=== PATIENT | female | born 1995 | race Caucasian/White ===

== ENCOUNTER 2020-06-08 15:51 | Inpatient (IN) | payer BC, MEDICAID ==
[2020-06-08] MEDS ORDERED: Nalbuphine 10 MG/1 ML Vial IVPUSH PRN (18:10)
[2020-06-08] MEDS ORDERED: Sodium Chloride 0.9% 10 ML Syringe FLUSH PRN (18:10)
[2020-06-08] MEDS ORDERED: Misoprostol 25 MCG (1/4 of 100 MCG) Tab VAG SCH ×2 (18:15→22:30)
--- NOTE | 2020-06-08 18:45 | PCM.LDHP ---
<Mei August I - Last Filed: 06/08/20 18:36> L&D History of Present Illness - General Date of Service: 06/08/20 Admit Problem/Dx: Patient Status Order with Admit Dx/Problem 06/08/20 18:15 Admission Status [Patient Status] [ADT] Routine Patient Status [ADT] Routine Admission Diagnosis/Problem Admission Diagnosis/Problem Source of Information: Patient History Limitations: Reports: No Limitations - History of Present Illness Introduction:: Hoda Lozano ia 24-year-old with gestational age 38 weeks and 4 days and MOISE of 06/18/2020 that presents to labor and delivery for a medically i ndicated induction due to hypertension (preeclampsia). Patient's blood pressure upon arrival was 157/105. She reports that she has been experiencing mild swelling in her ankles and feet for the duration of her . She denies headache, changes in vision or right upper quadrant pain. She denies shortness of breath, heart palpitations, or chest pain. Labwork 11/21/2019: blood type O positive, HCT 44/4%, HGB 15.7, platelets 287, RPR, HIV, HBsAg, chlamydia, gonorrhea all negative 05/19/2020: GBS negative - Related Data Allergies/Adverse Reactions: Allergies Allergy/AdvReac Type Severity Reaction Status Date / Time No Known Allergies Allergy Verified 06/08/20 16:42 Home Medications: Home Meds Vits #93/Iron Fum/FA [ Formula Tablet] 1 each PO DAILY 06/08/20 [History] H&P Review of Systems - Review of Systems: Review Of Systems: See Below General: Reports: No Symptoms HEENT: Reports: No Symptoms Pulmonary: Reports: No Symptoms Cardiovascular: Reports: Edema (mild pedal edema ) Gastrointestinal: Reports: No Symptoms Genitourinary: Reports: No Symptoms L&D Exam - Exam Exam: See Below - Vital Signs Vital Signs: Last Vital Signs Temp 96.5 F L 06/08/20 16:00 Pulse 100 06/08/20 16:00 Resp 18 06/08/20 16:00 BP 149/99 H 06/08/20 16:00 Pulse Ox 97 06/08/20 16:00 Weight: 251 lb 14.4 oz - Exam General: Alert, Oriented Lungs: Clear to Auscultation, Normal Respiratory Effort Cardiovascular: Regular Rate, Regular Rhythm Extremities: Pedal Edema (1+ pitting pedal edema) - Patient Data Lab Results Last 24 hrs: Laboratory Results - last 24 hr 06/08/20 06/08/20 06/08/20 Range/Units 17:20 17:20 17:20 WBC 11.37 H (3.98-10.04) K/mm3 RBC 4.34 (3.98-5.22) M/mm3 Hgb 14.0 (11.2-15.7) gm/dl Hct 40.9 (34.1-44.9) % MCV 94.2 (79.4-94.8) fl MCH 32.3 H (25.6-32.2) pg MCHC 34.2 (32.2-35.5) g/dl RDW Std Deviation 43.5 (36.4-46.3) fL Plt Count 255 (182-369) K/mm3 MPV 12.1 (9.4-12.3) fl Neut % (Auto) 70.6 (34.0-71.1) % Lymph % (Auto) 16.6 L (19.3-51.7) % [place] % (Auto) 9.1 (4.7-12.5) % Eos % (Auto) 1.8 (0.7-5.8) Baso % (Auto) 0.4 (0.1-1.2) % Neut # (Auto) 8.02 H (1.56-6.13) K/mm3 Lymph # (Auto) 1.89 (1.18-3.74) K/mm3 [place] # (Auto) 1.03 H (0.24-0.36) K/mm3 Eos # (Auto) 0.21 (0.04-0.36) K/mm3 Baso # (Auto) 0.05 (0.01-0.08) K/mm3 Manual Slide Review Normal smear BUN 15 (7-18) mg/dL Creatinine 0.8 (0.55-1.02) mg/dL Est Cr Clr Drug Dosing 84.28 mL/min Estimated GFR (MDRD) > 60 (>60) mL/min Uric Acid 6.7 H (2.6-6.0) mg/dL AST 19 (15-37) U/L ALT 18 (14-59) U/L Lactate Dehydrogenase 375 H (81-234) U/L Urine Color Yellow (Yellow) Urine Appearance Clear (Clear) Urine pH 6.0 (5.0-8.0) Ur Specific [place] 1.025 (1.005-1.030) Urine Protein 2+ H (Negative) Urine Glucose (UA) Negative (Negative) Urine Ketones Negative (Negative) Urine Occult Blood Trace-intact H (Negative) Urine Nitrite Negative (Negative) Urine Bilirubin Negative (Negative) Urine Urobilinogen 0.2 (0.2-1.0) Ur Leukocyte Esterase Negative (Negative) Urine RBC 0-5 (0-5) /hpf Urine WBC 0-5 (0-5) /hpf Ur Squamous Epith Cells 5-10 H (0-5) /hpf Amorphous Sediment Moderate H (NOT SEEN) /hpf Urine Bacteria Few (FEW) /hpf Urine Mucus Many H (FEW) /hpf Ur Random Creatinine (30.0-125.0) mg/dL U Random Total Protein (0.0-11.8) mg/dL Protein/Creatinin Ratio (0-149) mg/g 06/08/20 Range/Units 17:20 WBC (3.98-10.04) K/mm3 RBC (3.98-5.22) M/mm3 Hgb (11.2-15.7) gm/dl Hct (34.1-44.9) % MCV (79.4-94.8) fl MCH (25.6-32.2) pg MCHC (32.2-35.5) g/dl RDW Std Deviation (36.4-46.3) fL Plt Count (182-369) K/mm3 MPV (9.4-12.3) fl Neut % (Auto) (34.0-71.1) % Lymph % (Auto) (19.3-51.7) % [place] % (Auto) (4.7-12.5) % Eos % (Auto) (0.7-5.8) Baso % (Auto) (0.1-1.2) % Neut # (Auto) (1.56-6.13) K/mm3 Lymph # (Auto) (1.18-3.74) K/mm3 [place] # (Auto) (0.24-0.36) K/mm3 Eos # (Auto) (0.04-0.36) K/mm3 Baso # (Auto) (0.01-0.08) K/mm3 Manual Slide Review BUN (7-18) mg/dL Creatinine (0.55-1.02) mg/dL Est Cr Clr Drug Dosing mL/min Estimated GFR (MDRD) (>60) mL/min Uric Acid (2.6-6.0) mg/dL AST (15-37) U/L ALT (14-59) U/L Lactate Dehydrogenase (81-234) U/L Urine Color (Yellow) Urine Appearance (Clear) Urine pH (5.0-8.0) Ur Specific [place] (1.005-1.030) Urine Protein (Negative) Urine Glucose (UA) (Negative) Urine Ketones (Negative) Urine Occult Blood (Negative) Urine Nitrite (Negative) Urine Bilirubin (Negative) Urine Urobilinogen (0.2-1.0) Ur Leukocyte Esterase (Negative) Urine RBC (0-5) /hpf Urine WBC (0-5) /hpf Ur Squamous Epith Cells (0-5) /hpf Amorphous Sediment (NOT SEEN) /hpf Urine Bacteria (FEW) /hpf Urine Mucus (FEW) /hpf Ur Random Creatinine 178.0 H (30.0-125.0) mg/dL U Random Total Protein 55.6 H (0.0-11.8) mg/dL Protein/Creatinin Ratio 312.4 H (0-149) mg/g Result Diagrams: 06/08/20 17:20 06/08/20 17:20 Orders Last 24hrs: Active Orders 24 hr Category Date Time Status Admission Status [Patient Status] [ADT] Routine ADT 06/08/20 18:15 Active Patient Status [ADT] Routine ADT 06/08/20 18:15 Active Activity as Tolerated [RC] PFP Care 06/08/20 18:10 Active Communication Order [RC] ASDIRECTED Care 06/08/20 18:10 Active Heart Tones [RC] ASDIRECTED Care 06/08/20 18:11 Active Notify Provider [RC] PFP Care 06/08/20 18:10 Active Notify Provider [RC] PRN Care 06/08/20 18:10 Active Peripheral IV Care [RC] . DIRECTED Care 06/08/20 18:11 Active Vital Signs [RC] PER UNIT ROUTINE Care 06/08/20 16:00 Active Vital Signs [RC] PER UNIT ROUTINE Care 06/08/20 18:10 Active Regular Diet [DIET] Diet 06/08/20 Dinner Active CORONAVIRUS COVID-19 VAMSHI [MOLEC] Stat Lab 06/08/20 17:21 Received RAPID PLASMA REAGIN,RPR [CHEM] Routine Lab 06/08/20 18:10 Ordered TYPE AND SCREEN [BBK] Stat Lab 06/08/20 17:20 Received Lactated Ringers [Ringers, Lactated] 1,000 ml Med 06/08/20 18:15 Active IV ASDIRECTED Nalbuphine [Nubain] Med 06/08/20 18:10 Active 10 mg IVPUSH Q2H PRN Sodium Chloride 0.9% [Saline Flush] Med 06/08/20 18:10 Active 10 ml FLUSH ASDIRECTED PRN miSOPROStoL [Cytotec] Med 06/08/20 18:15 Active 50 mcg VAG ONETIME Electronic Heart Tones Ext w TOCO [WOMSER] Oth 06/08/20 18:10 Ordered Routine Electronic Heart Tones Internal [WOMSER] Per Unit Oth 06/08/20 18:10 Ordered Routine PIH Panel [OM.PC] Stat Oth 06/08/20 16:42 Ordered Peripheral IV Insertion Adult [OM.PC] Routine Oth 06/08/20 18:10 Ordered Resuscitation Status Routine Resus Stat 06/08/20 16:00 Ordered Medication Orders Lactated Ringer's (Ringers, Lactated) 1,000 mls @ 100 mls/hr IV ASDIRECTED ARLENE Misoprostol (Cytotec) 50 mcg VAG ONETIME ARLENE Last Admin: 06/08/20 18:28 Dose: 50 mcg Documented by: JORDI Nalbuphine HCl (Nubain) 10 mg IVPUSH Q2H PRN PRN Reason: Pain Sodium Chloride (Saline Flush) 10 ml FLUSH ASDIRECTED PRN PRN Reason: Keep Vein Open Assessment/Plan Comment:: 50mcg Cytotec administered vaginally at 1825. <Josué Parmar - Last Filed: 06/08/20 23:37> L&D History of Present Illness - General Admit Problem/Dx: Patient Status Order with Admit Dx/Problem 06/08/20 18:15 Admission Status [Patient Status] [ADT] Routine Patient Status [ADT] Routine Admission Diagnosis/Problem Admission Diagnosis/Problem - History of Present Illness Introduction:: H/H 44.4%/15.7 Patient seen, examined by me and discussed with student L&D Exam - Vital Signs Vital Signs: Last Vital Signs Temp 96.5 F L 06/08/20 16:00 Pulse 94 06/08/20 19:57 Resp 18 06/08/20 16:00 BP 161/103 H 06/08/20 19:57 Pulse Ox 97 06/08/20 16:00 - OB Specific Fundal Height In cm: 37 Movement: Active Heart Tones: Present Heart Tones per Min: 140 Heart Rate (FHR) Variability: Moderate (6-25 bmp) Presentation: Vertex - [place] Score Milan Score Cervix Position: Posterior [place] Score Consistency: Soft [place] Score Effacement: 0-30% Milan Score Dilation: 1-2 cm Milan Score 's Station: -2 [place] Score Total: 4 - Exam Extremities: Normal Inspection, Non-Tender, Normal Capillary Refill Skin: Warm, Dry, Intact DTR: 0: Patella (L), Patella (R) Psychiatric: Alert, Normal Affect, Normal Mood - Patient Data Lab Results Last 24 hrs: Laboratory Results - last 24 hr 06/08/20 06/08/20 06/08/20 Range/Units 17:20 17:20 17:20 WBC 11.37 H (3.98-10.04) K/mm3 RBC 4.34 (3.98-5.22) M/mm3 Hgb 14.0 (11.2-15.7) gm/dl Hct 40.9 (34.1-44.9) % MCV 94.2 (79.4-94.8) fl MCH 32.3 H (25.6-32.2) pg MCHC 34.2 (32.2-35.5) g/dl RDW Std Deviation 43.5 (36.4-46.3) fL Plt Count 255 (182-369) K/mm3 MPV 12.1 (9.4-12.3) fl Neut % (Auto) 70.6 (34.0-71.1) % Lymph % (Auto) 16.6 L (19.3-51.7) % [place] % (Auto) 9.1 (4.7-12.5) % Eos % (Auto) 1.8 (0.7-5.8) Baso % (Auto) 0.4 (0.1-1.2) % Neut # (Auto) 8.02 H (1.56-6.13) K/mm3 Lymph # (Auto) 1.89 (1.18-3.74) K/mm3 [place] # (Auto) 1.03 H (0.24-0.36) K/mm3 Eos # (Auto) 0.21 (0.04-0.36) K/mm3 Baso # (Auto) 0.05 (0.01-0.08) K/mm3 Manual Slide Review Normal smear BUN 15 (7-18) mg/dL Creatinine 0.8 (0.55-1.02) mg/dL Est Cr Clr Drug Dosing 84.28 mL/min Estimated GFR (MDRD) > 60 (>60) mL/min Uric Acid 6.7 H (2.6-6.0) mg/dL AST 19 (15-37) U/L ALT 18 (14-59) U/L Lactate Dehydrogenase 375 H (81-234) U/L Urine Color Yellow (Yellow) Urine Appearance Clear (Clear) Urine pH 6.0 (5.0-8.0) Ur Specific [place] 1.025 (1.005-1.030) Urine Protein 2+ H (Negative) Urine Glucose (UA) Negative (Negative) Urine Ketones Negative (Negative) Urine Occult Blood Trace-intact H (Negative) Urine Nitrite Negative (Negative) Urine Bilirubin Negative (Negative) Urine Urobilinogen 0.2 (0.2-1.0) Ur Leukocyte Esterase Negative (Negative) Urine RBC 0-5 (0-5) /hpf Urine WBC 0-5 (0-5) /hpf Ur Squamous Epith Cells 5-10 H (0-5) /hpf Amorphous Sediment Moderate H (NOT SEEN) /hpf Urine Bacteria Few (FEW) /hpf Urine Mucus Many H (FEW) /hpf Ur Random Creatinine (30.0-125.0) mg/dL U Random Total Protein (0.0-11.8) mg/dL Protein/Creatinin Ratio (0-149) mg/g SARS-CoV-2 RNA (VAMSHI) (NEGATIVE) Blood Type Gel Antibody Screen 06/08/20 06/08/20 06/08/20 Range/Units 17:20 17:20 17:21 WBC (3.98-10.04) K/mm3 RBC (3.98-5.22) M/mm3 Hgb (11.2-15.7) gm/dl Hct (34.1-44.9) % MCV (79.4-94.8) fl MCH (25.6-32.2) pg MCHC (32.2-35.5) g/dl RDW Std Deviation (36.4-46.3) fL Plt Count (182-369) K/mm3 MPV (9.4-12.3) fl Neut % (Auto) (34.0-71.1) % Lymph % (Auto) (19.3-51.7) % [place] % (Auto) (4.7-12.5) % Eos % (Auto) (0.7-5.8) Baso % (Auto) (0.1-1.2) % Neut # (Auto) (1.56-6.13) K/mm3 Lymph # (Auto) (1.18-3.74) K/mm3 [place] # (Auto) (0.24-0.36) K/mm3 Eos # (Auto) (0.04-0.36) K/mm3 Baso # (Auto) (0.01-0.08) K/mm3 Manual Slide Review BUN (7-18) mg/dL Creatinine (0.55-1.02) mg/dL Est Cr Clr Drug Dosing mL/min Estimated GFR (MDRD) (>60) mL/min Uric Acid (2.6-6.0) mg/dL AST (15-37) U/L ALT (14-59) U/L Lactate Dehydrogenase (81-234) U/L Urine Color (Yellow) Urine Appearance (Clear) Urine pH (5.0-8.0) Ur Specific [place] (1.005-1.030) Urine Protein (Negative) Urine Glucose (UA) (Negative) Urine Ketones (Negative) Urine Occult Blood (Negative) Urine Nitrite (Negative) Urine Bilirubin (Negative) Urine Urobilinogen (0.2-1.0) Ur Leukocyte Esterase (Negative) Urine RBC (0-5) /hpf Urine WBC (0-5) /hpf Ur Squamous Epith Cells (0-5) /hpf Amorphous Sediment (NOT SEEN) /hpf Urine Bacteria (FEW) /hpf Urine Mucus (FEW) /hpf Ur Random Creatinine 178.0 H (30.0-125.0) mg/dL U Random Total Protein 55.6 H (0.0-11.8) mg/dL Protein/Creatinin Ratio 312.4 H (0-149) mg/g SARS-CoV-2 RNA (VAMSHI) Negative (NEGATIVE) Blood Type O POSITIVE Gel Antibody Screen Negative Result Diagrams: 06/08/20 17:20 06/08/20 17:20 - Problem List (1) 38 weeks gestation of SNOMED Code(s): 14882787 ICD Code: Z3A.38 - 38 WEEKS GESTATION OF Status: Acute Current Visit: Yes (2) Preeclampsia SNOMED Code(s): 600850143 ICD Code: O14.90 - UNSPECIFIED PRE-ECLAMPSIA, UNSPECIFIED TRIMESTER Status: Acute Current Visit: Yes Qualifiers: Trimester: third trimester Qualified Code(s): O14.93 - Unspecified pre- eclampsia, third trimester (3) Obesity affecting in third trimester, antepartum SNOMED Code(s): 467358883563, 603403691638 ICD Code: O99.213 - OBESITY COMPLICATING , THIRD TRIMESTER Status: Acute Current Visit: Yes Problem List Initiated/Reviewed/Updated: No Orders Last 24hrs: Active Orders 24 hr Category Date Time Status Admission Status [Patient Status] [ADT] Routine ADT 06/08/20 18:15 Active Patient Status [ADT] Routine ADT 06/08/20 18:15 Active Activity as Tolerated [RC] PFP Care 06/08/20 18:10 Active Communication Order [RC] ASDIRECTED Care 06/08/20 18:10 Active Notify Provider [RC] PFP Care 06/08/20 18:10 Active Notify Provider [RC] PRN Care 06/08/20 18:10 Active Peripheral IV Care [RC] Q2HR Care 06/08/20 18:11 Active Regular Diet [DIET] Diet 06/08/20 Dinner Active RAPID PLASMA REAGIN,RPR [CHEM] Routine Lab 06/08/20 18:10 Ordered Labetalol [Normodyne] Med 06/09/20 02:00 Active 100 mg PO Q6H Lactated Ringers [Ringers, Lactated] 1,000 ml Med 06/08/20 18:15 Active IV ASDIRECTED Nalbuphine [Nubain] Med 06/08/20 18:10 Active 10 mg IVPUSH Q2H PRN Sodium Chloride 0.9% [Saline Flush] Med 06/08/20 18:10 Active 10 ml FLUSH ASDIRECTED PRN hydrOXYzine HCL [Atarax] Med 06/08/20 19:42 Active 50 mg PO Q6H PRN miSOPROStoL [Cytotec] Med 06/08/20 18:15 Active 50 mcg VAG ONETIME miSOPROStoL [Cytotec] Med 06/08/20 22:30 Active 50 mcg VAG Q4HR Electronic Heart Tones Ext w TOCO [WOMSER] Oth 06/08/20 18:10 Ordered Routine Electronic Heart Tones Internal [WOMSER] Per Unit Oth 06/08/20 18:10 Ordered Routine PIH Panel [OM.PC] Stat Oth 06/08/20 16:42 Ordered Peripheral IV Insertion Adult [OM.PC] Routine Oth 06/08/20 18:10 Ordered Resuscitation Status Routine Resus Stat 06/08/20 16:00 Ordered Medication Orders Hydroxyzine HCl (Atarax) 50 mg PO Q6H PRN PRN Reason: Anxiety Last Admin: 06/08/20 19:57 Dose: 50 mg Documented by: ANGIE Lactated Ringer's (Ringers, Lactated) 1,000 mls @ 100 mls/hr IV ASDIRECTED ARLENE Last Admin: 06/08/20 22:34 Dose: 100 mls/hr Documented by: PETECHE Labetalol HCl (Normodyne) 100 mg PO Q6H ARLENE Misoprostol (Cytotec) 50 mcg VAG ONETIME ARLENE Last Admin: 06/08/20 18:28 Dose: 50 mcg Documented by: DOLELIS Misoprostol (Cytotec) 50 mcg VAG Q4HR ARLENE Stop: 06/09/20 01:01 Nalbuphine HCl (Nubain) 10 mg IVPUSH Q2H PRN PRN Reason: Pain Sodium Chloride (Saline Flush) 10 ml FLUSH ASDIRECTED PRN PRN Reason: Keep Vein Open Assessment/Plan Comment:: H/H 44.4%/15.7 Patient seen, examined by me and discussed with student
[2020-06-08] MEDS ORDERED: hydrOXYzine HCl 50 MG Tab PO PRN (19:42)
[2020-06-08] MEDS ORDERED: Labetalol 100 MG Tab PO ONE (19:42)
[2020-06-08] MEDS: Lactated Ringers 1,000 ML IV SCH ×2 (22:34→23:48)
--- NOTE | 2020-06-08 23:43 | PCM.SN.2 ---
- Free Text/Narrative Note: Amniotomy at 2310 hours, clear fluid; cervix 3, 80-90%, soft, mid-position, vertex at 0 station having contractions q1-3 minutes, intermittent decelerations, internal uterine activity catheter and scalp electrode placed. Patient placed on right side. Class I FHR now. Planning epidural, anesthesia has been called.
[2020-06-08] MEDS ORDERED: Bupivacaine/fentaNYL/NS 100 ML Bag EPIDUR PRN (23:47)
[2020-06-08] MEDS ORDERED: ePHEDrine 50 MG/ML SDV IVPUSH PRN (23:47)
[2020-06-08] MEDS ORDERED: diphenhydrAMINE 50 MG/ML SDV IVPUSH PRN (23:47)
[2020-06-08] MEDS ORDERED: fentaNYL 100 MCG/2 ML SDV EPIDUR PRN (23:47)
[2020-06-08] MEDS ORDERED: Ondansetron 4 MG/2 ML SDV ONE (23:49)
[2020-06-08] MEDS ORDERED: Ondansetron 4 MG/2 ML SDV IVPUSH PRN (23:50)
[2020-06-09] MEDS ORDERED: Bupivacaine 0.25% 10 ML SDV ONE
[2020-06-09] MEDS ORDERED: ePHEDrine Sulfate/0.9% NaCl/Pf 25 MG/5 ML SYRINGE IV ONE
[2020-06-09] MEDS: Lactated Ringers 1,000 ML IV SCH (00:39)
--- NOTE | 2020-06-09 00:39 | PCM.PREANE ---
Preanesthetic Assessment - Procedure Proposed Procedure: Labor Epidural - Anesthesia/Transfusion/Family Hx Anesthesia History: Prior Anesthesia Without Reaction Family History of Anesthesia Reaction: No Transfusion History: No Prior Transfusion(s) - Review of Systems General: No Symptoms Pulmonary: No Symptoms Cardiovascular: Other (Hypertension/Preeclampsia) Gastrointestinal: Abdominal Pain, Other (GERD) Neurological: No Symptoms Other: Reports: None (Morbid Obesity BMI 47.8) - Physical Assessment Vital Signs: Last Vital Signs Temp 35.8 C L 06/08/20 16:00 Pulse 94 06/08/20 19:57 Resp 18 06/08/20 16:00 BP 161/103 H 06/08/20 19:57 Pulse Ox 97 06/08/20 16:00 Height: 1.55 m Weight: 114.26 kg ASA Class: 3 Mental Status: Alert & Oriented x3 Airway Class: Mallampati = 1 Dentition: Reports: Caries Thyro-Mental Finger Breadths: 3 Mouth Opening Finger Breadths: 3 ROM/Head Extension: Full Lungs: Clear to Auscultation, Normal Respiratory Effort Cardiovascular: Regular Rate, Regular Rhythm - Lab Values: Laboratory Last Values WBC 11.37 K/mm3 (3.98-10.04) H 06/08/20 17:20 RBC 4.34 M/mm3 (3.98-5.22) 06/08/20 17:20 Hgb 14.0 gm/dl (11.2-15.7) 06/08/20 17:20 Hct 40.9 % (34.1-44.9) 06/08/20 17:20 MCV 94.2 fl (79.4-94.8) 06/08/20 17:20 MCH 32.3 pg (25.6-32.2) H 06/08/20 17:20 MCHC 34.2 g/dl (32.2-35.5) 06/08/20 17:20 RDW Std Deviation 43.5 fL (36.4-46.3) 06/08/20 17:20 Plt Count 255 K/mm3 (182-369) 06/08/20 17:20 MPV 12.1 fl (9.4-12.3) 06/08/20 17:20 Neut % (Auto) 70.6 % (34.0-71.1) 06/08/20 17:20 Lymph % (Auto) 16.6 % (19.3-51.7) L 06/08/20 17:20 Ray % (Auto) 9.1 % (4.7-12.5) 06/08/20 17:20 Eos % (Auto) 1.8 (0.7-5.8) 06/08/20 17:20 Baso % (Auto) 0.4 % (0.1-1.2) 06/08/20 17:20 Neut # (Auto) 8.02 K/mm3 (1.56-6.13) H 06/08/20 17:20 Lymph # (Auto) 1.89 K/mm3 (1.18-3.74) 06/08/20 17:20 Ray # (Auto) 1.03 K/mm3 (0.24-0.36) H 06/08/20 17:20 Eos # (Auto) 0.21 K/mm3 (0.04-0.36) 06/08/20 17:20 Baso # (Auto) 0.05 K/mm3 (0.01-0.08) 06/08/20 17:20 Manual Slide Review Normal smear 06/08/20 17:20 BUN 15 mg/dL (7-18) 06/08/20 17:20 Creatinine 0.8 mg/dL (0.55-1.02) 06/08/20 17:20 Est Cr Clr Drug Dosing 84.28 mL/min 06/08/20 17:20 Estimated GFR (MDRD) > 60 mL/min (>60) 06/08/20 17:20 Uric Acid 6.7 mg/dL (2.6-6.0) H 06/08/20 17:20 AST 19 U/L (15-37) 06/08/20 17:20 ALT 18 U/L (14-59) 06/08/20 17:20 Lactate Dehydrogenase 375 U/L (81-234) H 06/08/20 17:20 Urine Color Yellow (Yellow) 06/08/20 17:20 Urine Appearance Clear (Clear) 06/08/20 17:20 Urine pH 6.0 (5.0-8.0) 06/08/20 17:20 Ur Specific [place] 1.025 (1.005-1.030) 06/08/20 17:20 Urine Protein 2+ (Negative) H 06/08/20 17:20 Urine Glucose (UA) Negative (Negative) 06/08/20 17:20 Urine Ketones Negative (Negative) 06/08/20 17:20 Urine Occult Blood Trace-intact (Negative) H 06/08/20 17:20 Urine Nitrite Negative (Negative) 06/08/20 17:20 Urine Bilirubin Negative (Negative) 06/08/20 17:20 Urine Urobilinogen 0.2 (0.2-1.0) 06/08/20 17:20 Ur Leukocyte Esterase Negative (Negative) 06/08/20 17:20 Urine RBC 0-5 /hpf (0-5) 06/08/20 17:20 Urine WBC 0-5 /hpf (0-5) 06/08/20 17:20 Ur Squamous Epith Cells 5-10 /hpf (0-5) H 06/08/20 17:20 Amorphous Sediment Moderate /hpf (NOT SEEN) H 06/08/20 17:20 Urine Bacteria Few /hpf (FEW) 06/08/20 17:20 Urine Mucus Many /hpf (FEW) H 06/08/20 17:20 Ur Random Creatinine 178.0 mg/dL (30.0-125.0) H 06/08/20 17:20 U Random Total Protein 55.6 mg/dL (0.0-11.8) H 06/08/20 17:20 Protein/Creatinin Ratio 312.4 mg/g (0-149) H 06/08/20 17:20 SARS-CoV-2 RNA (VAMSHI) Negative (NEGATIVE) 06/08/20 17:21 Blood Type O POSITIVE 06/08/20 17:20 Gel Antibody Screen Negative 06/08/20 17:20 - Allergies Allergies/Adverse Reactions: Allergies Allergy/AdvReac Type Severity Reaction Status Date / Time No Known Allergies Allergy Verified 06/08/20 16:42 - Acknowledgements Anesthesia Type Planned: Epidural Pt an Appropriate Candidate for the Planned Anesthesia: Yes Alternatives and Risks of Anesthesia Discussed w Pt/Guardian: Yes Pt/Guardian Understands and Agrees with Anesthesia Plan: Yes PreAnesthesia Questionnaire - Past Health History Medical/Surgical History: Denies Medical/Surgical History - Infectious Disease History Infectious Disease History: Reports: None - SUBSTANCE USE Tobacco Use Status *Q: Never Tobacco User Second Hand Smoke Exposure: No Recreational Drug Use History: No - HOME MEDS Home Medications: Home Meds Vits #93/Iron Fum/FA [ Formula Tablet] 1 each PO DAILY 06/08/20 [History] - CURRENT (IN HOUSE) MEDS Current Meds: Current Medications Diphenhydramine HCl (Benadryl) 25 mg IVPUSH Q6H PRN PRN Reason: pruritis Ephedrine Sulfate (Ephedrine Sulfate) 5 mg IVPUSH ASDIRECTED PRN PRN Reason: Hypotension Fentanyl (Sublimaze) 100 mcg EPIDUR Q3H PRN PRN Reason: Pain Last Admin: 06/08/20 23:57 Dose: 100 mcg Documented by: Fentanyl/Bupivacaine HCl (Fentanyl/Bupivacaine/Ns 2 Mcg-0.125% 100 Ml) 100 ml EPIDUR ASDIRECTED PRN PRN Reason: Pain Last Admin: 06/08/20 23:57 Dose: 100 ml Documented by: Hydroxyzine HCl (Atarax) 50 mg PO Q6H PRN PRN Reason: Anxiety Last Admin: 06/08/20 19:57 Dose: 50 mg Documented by: Lactated Ringer's (Ringers, Lactated) 1,000 mls @ 100 mls/hr IV ASDIRECTED ARLENE Last Admin: 06/08/20 23:48 Dose: 999 mls/hr Documented by: Labetalol HCl (Normodyne) 100 mg PO Q6H ARLENE Misoprostol (Cytotec) 50 mcg VAG ONETIME [facility] Last Admin: 06/08/20 18:28 Dose: 50 mcg Documented by: Misoprostol (Cytotec) 50 mcg VAG Q4HR [facility] Stop: 06/09/20 01:01 Nalbuphine HCl (Nubain) 10 mg IVPUSH Q2H PRN PRN Reason: Pain Ondansetron HCl (Zofran) 4 mg IVPUSH Q4H PRN PRN Reason: Nausea Sodium Chloride (Saline Flush) 10 ml FLUSH ASDIRECTED PRN PRN Reason: Keep Vein Open Discontinued Medications Labetalol HCl (Normodyne) 200 mg PO ONETIME ONE Stop: 06/08/20 19:43 Last Admin: 06/08/20 19:57 Dose: 200 mg Documented by: Ondansetron HCl (Zofran) Confirm Administered Dose 4 mg .ROUTE .STK-MED ONE Stop: 06/08/20 23:50 Last Admin: 06/08/20 23:52 Dose: 4 mg Documented by:
[2020-06-09] MEDS ORDERED: Oxytocin/Lactated Ringers 10 UNIT/1,000 ML BAG IV ONE (01:34)
[2020-06-09] MEDS ORDERED: Oxytocin/Lactated Ringers 10 UNIT/1,000 ML BAG IV SCH (01:45)
[2020-06-09] MEDS ORDERED: Labetalol 100 MG Tab PO SCH ×5 (02:00→15:00)
--- NOTE | 2020-06-09 02:11 | PCM.DEL ---
L & D Note - General Info Date of Service: 06/09/20 Mother's Due Date: 06/18/20 - Delivery Note Labor: Spontaneous Cervical Ripening Method: Misoprostil Delivery Outcome: Livebirth (Born male 0154 hrs. on 06/09/2020 right occiput anterior no nuchal cord epidural anesthesia over no episiotomy no laceration Apgars 7/9) Delivery Method: Spontaneous Vaginal Delivery-Single Delivery Mode: Spontaneous Presentation: Right Occiput Anterior (WALKER) Nuchal Cord: None Prep: Povidone-Iodine (Betadine Anesthesia Type: Epidural Amniotic Fluid Description: Clear Episiotomy Type: None Laceration: None Placenta: Intact, Spontaneous (0157 hrs. on 06/09/2020) Cord: 3 Vessels Estimated Blood Loss: 250 Resuscitation Needed: No [place]: Suctioned, Bulb Syringe, Stimulated, Warmed, [place] Used, Warmer Used Provider: Josué Parmar Score 1 min: 7 Score 5 min: 9 Induction Criteria - [place] Score Milan Score Dilation: 1-2 cm Milan Score Effacement: 0-30% Milan Score Infant's Station: -2 Milan Score Consistency: Soft [place] Score Cervix Position: Posterior Milan Score Total: 4 Milan Score Presenting Part: Reports: Cephalic - Induction Gestational Age >/= 39 wks: No Medical Indication: preeclampsia Estimated Pelvis: Reports: Adequate Reassuring Monitoring Strip: Yes Absence of Tachy Systole: Yes - General Info Date of Service: 06/09/20 Functional Status: Reports: Pain Controlled - Review of Systems General: Reports: No Symptoms HEENT: Reports: No Symptoms Pulmonary: Reports: No Symptoms Cardiovascular: Reports: No Symptoms Gastrointestinal: Reports: No Symptoms Genitourinary: Reports: No Symptoms Musculoskeletal: Reports: No Symptoms Skin: Reports: No Symptoms Neurological: Reports: No Symptoms Psychiatric: Reports: No Symptoms - Patient Data Vitals - Most Recent: Last Vital Signs Temp 96.5 F L 06/08/20 16:00 Pulse 94 06/08/20 19:57 Resp 18 06/08/20 16:00 BP 161/103 H 06/08/20 19:57 Pulse Ox 97 06/08/20 16:00 Weight - Most Recent: 251 lb 14.4 oz Lab Results Last 24 Hours: Laboratory Results - last 24 hr 06/08/20 06/08/20 06/08/20 Range/Units 17:20 17:20 17:20 WBC 11.37 H (3.98-10.04) K/mm3 RBC 4.34 (3.98-5.22) M/mm3 Hgb 14.0 (11.2-15.7) gm/dl Hct 40.9 (34.1-44.9) % MCV 94.2 (79.4-94.8) fl MCH 32.3 H (25.6-32.2) pg MCHC 34.2 (32.2-35.5) g/dl RDW Std Deviation 43.5 (36.4-46.3) fL Plt Count 255 (182-369) K/mm3 MPV 12.1 (9.4-12.3) fl Neut % (Auto) 70.6 (34.0-71.1) % Lymph % (Auto) 16.6 L (19.3-51.7) % [place] % (Auto) 9.1 (4.7-12.5) % Eos % (Auto) 1.8 (0.7-5.8) Baso % (Auto) 0.4 (0.1-1.2) % Neut # (Auto) 8.02 H (1.56-6.13) K/mm3 Lymph # (Auto) 1.89 (1.18-3.74) K/mm3 [place] # (Auto) 1.03 H (0.24-0.36) K/mm3 Eos # (Auto) 0.21 (0.04-0.36) K/mm3 Baso # (Auto) 0.05 (0.01-0.08) K/mm3 Manual Slide Review Normal smear BUN 15 (7-18) mg/dL Creatinine 0.8 (0.55-1.02) mg/dL Est Cr Clr Drug Dosing 84.28 mL/min Estimated GFR (MDRD) > 60 (>60) mL/min Uric Acid 6.7 H (2.6-6.0) mg/dL AST 19 (15-37) U/L ALT 18 (14-59) U/L Lactate Dehydrogenase 375 H (81-234) U/L Urine Color Yellow (Yellow) Urine Appearance Clear (Clear) Urine pH 6.0 (5.0-8.0) Ur Specific [place] 1.025 (1.005-1.030) Urine Protein 2+ H (Negative) Urine Glucose (UA) Negative (Negative) Urine Ketones Negative (Negative) Urine Occult Blood Trace-intact H (Negative) Urine Nitrite Negative (Negative) Urine Bilirubin Negative (Negative) Urine Urobilinogen 0.2 (0.2-1.0) Ur Leukocyte Esterase Negative (Negative) Urine RBC 0-5 (0-5) /hpf Urine WBC 0-5 (0-5) /hpf Ur Squamous Epith Cells 5-10 H (0-5) /hpf Amorphous Sediment Moderate H (NOT SEEN) /hpf Urine Bacteria Few (FEW) /hpf Urine Mucus Many H (FEW) /hpf Ur Random Creatinine (30.0-125.0) mg/dL U Random Total Protein (0.0-11.8) mg/dL Protein/Creatinin Ratio (0-149) mg/g SARS-CoV-2 RNA (VAMSHI) (NEGATIVE) Blood Type Gel Antibody Screen 06/08/20 06/08/20 06/08/20 Range/Units 17:20 17:20 17:21 WBC (3.98-10.04) K/mm3 RBC (3.98-5.22) M/mm3 Hgb (11.2-15.7) gm/dl Hct (34.1-44.9) % MCV (79.4-94.8) fl MCH (25.6-32.2) pg MCHC (32.2-35.5) g/dl RDW Std Deviation (36.4-46.3) fL Plt Count (182-369) K/mm3 MPV (9.4-12.3) fl Neut % (Auto) (34.0-71.1) % Lymph % (Auto) (19.3-51.7) % [place] % (Auto) (4.7-12.5) % Eos % (Auto) (0.7-5.8) Baso % (Auto) (0.1-1.2) % Neut # (Auto) (1.56-6.13) K/mm3 Lymph # (Auto) (1.18-3.74) K/mm3 [place] # (Auto) (0.24-0.36) K/mm3 Eos # (Auto) (0.04-0.36) K/mm3 Baso # (Auto) (0.01-0.08) K/mm3 Manual Slide Review BUN (7-18) mg/dL Creatinine (0.55-1.02) mg/dL Est Cr Clr Drug Dosing mL/min Estimated GFR (MDRD) (>60) mL/min Uric Acid (2.6-6.0) mg/dL AST (15-37) U/L ALT (14-59) U/L Lactate Dehydrogenase (81-234) U/L Urine Color (Yellow) Urine Appearance (Clear) Urine pH (5.0-8.0) Ur Specific [place] (1.005-1.030) Urine Protein (Negative) Urine Glucose (UA) (Negative) Urine Ketones (Negative) Urine Occult Blood (Negative) Urine Nitrite (Negative) Urine Bilirubin (Negative) Urine Urobilinogen (0.2-1.0) Ur Leukocyte Esterase (Negative) Urine RBC (0-5) /hpf Urine WBC (0-5) /hpf Ur Squamous Epith Cells (0-5) /hpf Amorphous Sediment (NOT SEEN) /hpf Urine Bacteria (FEW) /hpf Urine Mucus (FEW) /hpf Ur Random Creatinine 178.0 H (30.0-125.0) mg/dL U Random Total Protein 55.6 H (0.0-11.8) mg/dL Protein/Creatinin Ratio 312.4 H (0-149) mg/g SARS-CoV-2 RNA (VAMSHI) Negative (NEGATIVE) Blood Type O POSITIVE Gel Antibody Screen Negative Med Orders - Current: Current Medications Diphenhydramine HCl (Benadryl) 25 mg IVPUSH Q6H PRN PRN Reason: pruritis Ephedrine Sulfate (Ephedrine Sulfate) 5 mg IVPUSH ASDIRECTED PRN PRN Reason: Hypotension Fentanyl (Sublimaze) 100 mcg EPIDUR Q3H PRN PRN Reason: Pain Last Admin: 06/08/20 23:57 Dose: 100 mcg Documented by: Fentanyl/Bupivacaine HCl (Fentanyl/Bupivacaine/Ns 2 Mcg-0.125% 100 Ml) 100 ml EPIDUR ASDIRECTED PRN PRN Reason: Pain Last Admin: 06/08/20 23:57 Dose: 100 ml Documented by: Hydroxyzine HCl (Atarax) 50 mg PO Q6H PRN PRN Reason: Anxiety Last Admin: 06/08/20 19:57 Dose: 50 mg Documented by: Lactated Ringer's (Ringers, Lactated) 1,000 mls @ 100 mls/hr IV ASDIRECTED [facility] Last Admin: 06/09/20 00:39 Dose: 999 mls/hr Documented by: Oxytocin/Lactated Ringer's (Pitocin In Lr 10 Units/1,000 Ml) 10 unit in 1,000 mls @ 500 mls/hr IV ASDIRECTED [facility] Labetalol HCl (Normodyne) 100 mg PO Q6H [facility] Misoprostol (Cytotec) 50 mcg VAG ONETIME [facility] Last Admin: 06/08/20 18:28 Dose: 50 mcg Documented by: Nalbuphine HCl (Nubain) 10 mg IVPUSH Q2H PRN PRN Reason: Pain Ondansetron HCl (Zofran) 4 mg IVPUSH Q4H PRN PRN Reason: Nausea Sodium Chloride (Saline Flush) 10 ml FLUSH ASDIRECTED PRN PRN Reason: Keep Vein Open Discontinued Medications Oxytocin/Lactated Ringer's (Pitocin In Lr 10 Units/1,000 Ml) Confirm Administered Dose 10 unit in 1,000 mls @ as directed IV .STK-MED ONE Stop: 06/09/20 01:35 Labetalol HCl (Normodyne) 200 mg PO ONETIME ONE Stop: 06/08/20 19:43 Last Admin: 06/08/20 19:57 Dose: 200 mg Documented by: Misoprostol (Cytotec) 50 mcg VAG Q4HR [facility] Stop: 06/09/20 01:01 Ondansetron HCl (Zofran) Confirm Administered Dose 4 mg .ROUTE .STK-MED ONE Stop: 06/08/20 23:50 Last Admin: 06/08/20 23:52 Dose: 4 mg Documented by: - Exam General: Alert, Oriented HEENT: Pupils Equal, Mucous Membr. Moist/[place] Neck: Supple Lungs: Clear to Auscultation, Normal Respiratory Effort Cardiovascular: Regular Rate, Regular Rhythm GI/Abdominal Exam: Normal Bowel Sounds, Soft, Non-Tender (Female) Exam: Normal External Exam Extremities: Normal Inspection, Non-Tender, Normal Capillary Refill, Pedal Edema Skin: Warm, Dry, Intact Psy/Mental Status: Alert, Normal Affect, Normal Mood - Problem List & Annotations (1) 38 weeks gestation of SNOMED Code(s): 57964090 Code(s): Z3A.38 - 38 WEEKS GESTATION OF Status: Acute Current Visit: Yes (2) Preeclampsia SNOMED Code(s): 153155555 Code(s): O14.90 - UNSPECIFIED PRE-ECLAMPSIA, UNSPECIFIED TRIMESTER Status: Acute Current Visit: Yes Qualifiers: Trimester: third trimester Qualified Code(s): O14.93 - Unspecified pre-ecl ampsia, third trimester (3) Obesity affecting in third trimester, antepartum SNOMED Code(s): 272718069690, 518564033288 Code(s): O99.213 - OBESITY COMPLICATING , THIRD TRIMESTER Status: Acute Current Visit: Yes (4) Encounter for vaginal delivery SNOMED Code(s): 915068581, 811125909 Code(s): O80 - ENCOUNTER FOR FULL-TERM UNCOMPLICATED DELIVERY Status: Acute Current Visit: Yes - Problem List Review Problem List Initiated/Reviewed/Updated: No - My Orders Last 24 Hours: My Active Orders 06/08/20 16:00 Resuscitation Status Routine 06/08/20 16:42 PIH Panel [OM.PC] Stat 06/08/20 Dinner Regular Diet [DIET] 06/08/20 18:10 Activity as Tolerated [RC] PFP Communication Order [RC] ASDIRECTED Notify Provider [RC] PFP Notify Provider [RC] PRN RAPID PLASMA REAGIN,RPR [CHEM] Routine Nalbuphine [Nubain] 10 mg IVPUSH Q2H PRN Sodium Chloride 0.9% [Saline Flush] 10 ml FLUSH ASDIRECTED PRN Electronic Heart Tones Ext w TOCO [WOMSER] Routine Electronic Heart Tones Internal [WOMSER] Per Unit Routine Peripheral IV Insertion Adult [OM.PC] Routine 06/08/20 18:11 Peripheral IV Care [RC] Q2HR 06/08/20 18:15 Admission Status [Patient Status] [ADT] Routine Patient Status [ADT] Routine Lactated Ringers [Ringers, Lactated] 1,000 ml IV ASDIRECTED miSOPROStoL [Cytotec] 50 mcg VAG ONETIME 06/08/20 19:42 hydrOXYzine HCL [Atarax] 50 mg PO Q6H PRN 06/08/20 23:50 Ondansetron [Zofran] 4 mg IVPUSH Q4H PRN 06/09/20 01:45 Oxytocin/Lactated Ringers [Pitocin in LR 10 Units/1,000 ML] 10 unit in 1,000 ml IV ASDIRECTED 06/09/20 02:00 Labetalol [Normodyne] 100 mg PO Q6H - Plan Plan:: H/H 44.4%/15.7 Patient seen, examined by me and discussed with student
[2020-06-09] MEDS ORDERED: Witch Hazel Medicated Pads 40/Jar TOP PRN (02:18)
[2020-06-09] MEDS ORDERED: Docusate Sodium 100 MG Cap PO PRN (02:18)
[2020-06-09] MEDS ORDERED: Benzocaine/Menthol 20%-0.5% Spray 56 GM Canister TOP PRN (02:18)
[2020-06-09] MEDS ORDERED: Acetaminophen 325 MG Tab PO PRN (02:18)
--- NOTE | 2020-06-09 07:10 | PCM48HPAN ---
Post Anesthesia Note - EVALUATION WITHIN 48HRS OF ANESTHETIC Vital Signs in Normal Range: Yes Patient Participated in Evaluation: Yes Respiratory Function Stable: Yes Airway Patent: Yes Cardiovascular Function Stable: Yes Hydration Status Stable: Yes Pain Control Satisfactory: Yes Nausea and Vomiting Control Satisfactory: Yes Mental Status Recovered: Yes Vital Signs: Last Vital Signs Temp 37.2 C 06/09/20 04:25 Pulse 96 06/09/20 04:25 Resp 16 06/09/20 04:25 BP 121/71 06/09/20 04:25 Pulse Ox 98 06/09/20 04:25
[2020-06-09] MEDS: Ibuprofen 600 MG Tab PO PRN (07:35)
--- NOTE | 2020-06-09 12:57 | PCM.SN.2 ---
- Free Text/Narrative Note: exam Afebrile, chest clear, uterus at umbilicus -1. No heavy vaginal bleeding. No leg cramping. Increased Labetalol to 100 mg q6h
[2020-06-09] MEDS ORDERED: Labetalol 100 MG Tab PO ONE (17:49)
[2020-06-10] MEDS: Ibuprofen 600 MG Tab PO PRN ×4 (01:08→21:38)
[2020-06-10] MEDS: Labetalol 100 MG Tab PO SCH ×5 (01:11→20:53)
--- NOTE | 2020-06-10 09:57 | PCM.SN.2 ---
- Free Text/Narrative Note: exam Afebrile, chest clear, uterus at umbilicus -1. No heavy vaginal bleeding. No leg cramping. Continuing Labetalol 100 mg q6h BP 141/63 one hour after Labetalol
[2020-06-11] MEDS: Labetalol 100 MG Tab PO SCH ×2 (03:30→09:26)
[2020-06-11] MEDS: Ibuprofen 600 MG Tab PO PRN (09:30)
--- NOTE | 2020-06-11 09:38 | PCM.DCSUM1 ---
Discharge Summary - Hospital Course Free Text/Narrative:: [place] [facility] L/D Delivery Note Patient Name: ARSLAN RICK Date of : 89 Patient Status: Inpatient Attending Provider: Josué Parmar Date: 06/09/20 02:06 Initialization Date: 06/09/20 02:06 L & D Note - General Info Date of Service: 06/09/20 Mother's Due Date: 06/18/20 - Delivery Note Labor: Spontaneous Cervical Ripening Method: Misoprostil Delivery Outcome: Livebirth (Born male 0154 hrs. on 06/09/2020 right occiput anterior no nuchal cord epidural anesthesia over no episiotomy no laceration Apgars 7/9) Infant Delivery Method: Spontaneous Vaginal Delivery-Single Delivery Mode: Spontaneous Presentation: Right Occiput Anterior (WALKER) Nuchal Cord: None Prep: Povidone-Iodine (Betadine Anesthesia Type: Epidural Amniotic Fluid Description: Clear Episiotomy Type: None Laceration: None Placenta: Intact, Spontaneous (0157 hrs. on 06/09/2020) Cord: 3 Vessels Estimated Blood Loss: 250 Resuscitation Needed: No [place]: Suctioned, Bulb Syringe, Stimulated, Warmed, [place] Used, Warmer Used Provider: Josué Parmar Score 1 min: 7 Score 5 min: 9 Induction Criteria - Milan Score Milan Score Dilation: 1-2 cm Milan Score Effacement: 0-30% Milan Score Infant's Station: -2 Milan Score Consistency: Soft Milan Score Cervix Position: Posterior Milan Score Total: 4 Milan Score Presenting Part: Reports: Cephalic - Induction Gestational Age >/= 39 wks: No Medical Indication: preeclampsia Estimated Pelvis: Reports: Adequate Reassuring Monitoring Strip: Yes Absence of Tachy Systole: Yes - General Info Date of Service: 06/09/20 Functional Status: Reports: Pain Controlled - Review of Systems General: Reports: No Symptoms HEENT: Reports: No Symptoms Pulmonary: Reports: No Symptoms Cardiovascular: Reports: No Symptoms Gastrointestinal: Reports: No Symptoms Genitourinary: Reports: No Symptoms Musculoskeletal: Reports: No Symptoms Skin: Reports: No Symptoms Neurological: Reports: No Symptoms Psychiatric: Reports: No Symptoms - Patient Data Vitals - Most Recent: Last Vital Signs Temp 96.5 F L 06/08/20 16:00 Pulse 94 06/08/20 19:57 Resp 18 06/08/20 16:00 BP 161/103 H 06/08/20 19:57 Pulse Ox 97 06/08/20 16:00 Weight - Most Recent: 251 lb 14.4 oz Lab Results Last 24 Hours: Laboratory Results - last 24 hr 06/08/20 06/08/20 06/08/20 Range/Units 17:20 17:20 17:20 WBC 11.37 H (3.98-10.04) K/mm3 RBC 4.34 (3.98-5.22) M/mm3 Hgb 14.0 (11.2-15.7) gm/dl Hct 40.9 (34.1-44.9) % MCV 94.2 (79.4-94.8) fl MCH 32.3 H (25.6-32.2) pg MCHC 34.2 (32.2-35.5) g/dl RDW Std Deviation 43.5 (36.4-46.3) fL Plt Count 255 (182-369) K/mm3 MPV 12.1 (9.4-12.3) fl Neut % (Auto) 70.6 (34.0-71.1) % Lymph % (Auto) 16.6 L (19.3-51.7) % [place] % (Auto) 9.1 (4.7-12.5) % Eos % (Auto) 1.8 (0.7-5.8) Baso % (Auto) 0.4 (0.1-1.2) % Neut # (Auto) 8.02 H (1.56-6.13) K/mm3 Lymph # (Auto) 1.89 (1.18-3.74) K/mm3 [place] # (Auto) 1.03 H (0.24-0.36) K/mm3 Eos # (Auto) 0.21 (0.04-0.36) K/mm3 Baso # (Auto) 0.05 (0.01-0.08) K/mm3 Manual Slide Review Normal smear BUN 15 (7-18) mg/dL Creatinine 0.8 (0.55-1.02) mg/dL Est Cr Clr Drug Dosing 84.28 mL/min Estimated GFR (MDRD) > 60 (>60) mL/min Uric Acid 6.7 H (2.6-6.0) mg/dL AST 19 (15-37) U/L ALT 18 (14-59) U/L Lactate Dehydrogenase 375 H (81-234) U/L Urine Color Yellow (Yellow) Urine Appearance Clear (Clear) Urine pH 6.0 (5.0-8.0) Ur Specific [place] 1.025 (1.005-1.030) Urine Protein 2+ H (Negative) Urine Glucose (UA) Negative (Negative) Urine Ketones Negative (Negative) Urine Occult Blood Trace-intact H (Negative) Urine Nitrite Negative (Negative) Urine Bilirubin Negative (Negative) Urine Urobilinogen 0.2 (0.2-1.0) Ur Leukocyte Esterase Negative (Negative) Urine RBC 0-5 (0-5) /hpf Urine WBC 0-5 (0-5) /hpf Ur Squamous Epith Cells 5-10 H (0-5) /hpf Amorphous Sediment Moderate H (NOT SEEN) /hpf Urine Bacteria Few (FEW) /hpf Urine Mucus Many H (FEW) /hpf Ur Random Creatinine (30.0-125.0) mg/dL U Random Total Protein (0.0-11.8) mg/dL Protein/Creatinin Ratio (0-149) mg/g SARS-CoV-2 RNA (VAMSHI) (NEGATIVE) Blood Type Gel Antibody Screen 06/08/20 06/08/20 06/08/20 Range/Units 17:20 17:20 17:21 WBC (3.98-10.04) K/mm3 RBC (3.98-5.22) M/mm3 Hgb (11.2-15.7) gm/dl Hct (34.1-44.9) % MCV (79.4-94.8) fl MCH (25.6-32.2) pg MCHC (32.2-35.5) g/dl RDW Std Deviation (36.4-46.3) fL Plt Count (182-369) K/mm3 MPV (9.4-12.3) fl Neut % (Auto) (34.0-71.1) % Lymph % (Auto) (19.3-51.7) % [place] % (Auto) (4.7-12.5) % Eos % (Auto) (0.7-5.8) Baso % (Auto) (0.1-1.2) % Neut # (Auto) (1.56-6.13) K/mm3 Lymph # (Auto) (1.18-3.74) K/mm3 [place] # (Auto) (0.24-0.36) K/mm3 Eos # (Auto) (0.04-0.36) K/mm3 Baso # (Auto) (0.01-0.08) K/mm3 Manual Slide Review BUN (7-18) mg/dL Creatinine (0.55-1.02) mg/dL Est Cr Clr Drug Dosing mL/min Estimated GFR (MDRD) (>60) mL/min Uric Acid (2.6-6.0) mg/dL AST (15-37) U/L ALT (14-59) U/L Lactate Dehydrogenase (81-234) U/L Urine Color (Yellow) Urine Appearance (Clear) Urine pH (5.0-8.0) Ur Specific [place] (1.005-1.030) Urine Protein (Negative) Urine Glucose (UA) (Negative) Urine Ketones (Negative) Urine Occult Blood (Negative) Urine Nitrite (Negative) Urine Bilirubin (Negative) Urine Urobilinogen (0.2-1.0) Ur Leukocyte Esterase (Negative) Urine RBC (0-5) /hpf Urine WBC (0-5) /hpf Ur Squamous Epith Cells (0-5) /hpf Amorphous Sediment (NOT SEEN) /hpf Urine Bacteria (FEW) /hpf Urine Mucus (FEW) /hpf Ur Random Creatinine 178.0 H (30.0-125.0) mg/dL U Random Total Protein 55.6 H (0.0-11.8) mg/dL Protein/Creatinin Ratio 312.4 H (0-149) mg/g SARS-CoV-2 RNA (VAMSHI) Negative (NEGATIVE) Blood Type O POSITIVE Gel Antibody Screen Negative Med Orders - Current: Current Medications Diphenhydramine HCl (Benadryl) 25 mg IVPUSH Q6H PRN PRN Reason: pruritis Ephedrine Sulfate (Ephedrine Sulfate) 5 mg IVPUSH ASDIRECTED PRN PRN Reason: Hypotension Fentanyl (Sublimaze) 100 mcg EPIDUR Q3H PRN PRN Reason: Pain Last Admin: 06/08/20 23:57 Dose: 100 mcg Documented by: Fentanyl/Bupivacaine HCl (Fentanyl/Bupivacaine/Ns 2 Mcg-0.125% 100 Ml) 100 ml EPIDUR ASDIRECTED PRN PRN Reason: Pain Last Admin: 06/08/20 23:57 Dose: 100 ml Documented by: Hydroxyzine HCl (Atarax) 50 mg PO Q6H PRN PRN Reason: Anxiety Last Admin: 06/08/20 19:57 Dose: 50 mg Documented by: Lactated Ringer's (Ringers, Lactated) 1,000 mls @ 100 mls/hr IV ASDIRECTED [facility] Last Admin: 06/09/20 00:39 Dose: 999 mls/hr Documented by: Oxytocin/Lactated Ringer's (Pitocin In Lr 10 Units/1,000 Ml) 10 unit in 1,000 mls @ 500 mls/hr IV ASDIRECTED [facility] Labetalol HCl (Normodyne) 100 mg PO Q6H [facility] Misoprostol (Cytotec) 50 mcg VAG ONETIME [facility] Last Admin: 06/08/20 18:28 Dose: 50 mcg Documented by: Nalbuphine HCl (Nubain) 10 mg IVPUSH Q2H PRN PRN Reason: Pain Ondansetron HCl (Zofran) 4 mg IVPUSH Q4H PRN PRN Reason: Nausea Sodium Chloride (Saline Flush) 10 ml FLUSH ASDIRECTED PRN PRN Reason: Keep Vein Open Discontinued Medications Oxytocin/Lactated Ringer's (Pitocin In Lr 10 Units/1,000 Ml) Confirm Administered Dose 10 unit in 1,000 mls @ as directed IV .STK-MED ONE Stop: 06/09/20 01:35 Labetalol HCl (Normodyne) 200 mg PO ONETIME ONE Stop: 06/08/20 19:43 Last Admin: 06/08/20 19:57 Dose: 200 mg Documented by: Misoprostol (Cytotec) 50 mcg VAG Q4HR [facility] Stop: 06/09/20 01:01 Ondansetron HCl (Zofran) Confirm Administered Dose 4 mg .ROUTE .STK-MED ONE Stop: 06/08/20 23:50 Last Admin: 06/08/20 23:52 Dose: 4 mg Documented by: - Exam General: Alert, Oriented HEENT: Pupils Equal, Mucous Membr. Moist/[place] Neck: Supple Lungs: Clear to Auscultation, Normal Respiratory Effort Cardiovascular: Regular Rate, Regular Rhythm GI/Abdominal Exam: Normal Bowel Sounds, Soft, Non-Tender (Female) Exam: Normal External Exam Extremities: Normal Inspection, Non-Tender, Normal Capillary Refill, Pedal Edema Skin: Warm, Dry, Intact Psy/Mental Status: Alert, Normal Affect, Normal Mood - Problem List & Annotations (1) 38 weeks gestation of SNOMED Code(s): 81830152 Code(s): Z3A.38 - 38 WEEKS GESTATION OF Status: Acute Current Visit: Yes (2) Preeclampsia SNOMED Code(s): 656517430 Code(s): O14.90 - UNSPECIFIED PRE-ECLAMPSIA, UNSPECIFIED TRIMESTER Status: Acute Current Visit: Yes Qualifiers: Trimester: third trimester Qualified Code(s): O14.93 - Unspecified pre- eclampsia, third trimester (3) Obesity affecting in third trimester, antepartum SNOMED Code(s): 394313724538, 312654378115 Code(s): O99.213 - OBESITY COMPLICATING , THIRD TRIMESTER Status: Acute Current Visit: Yes (4) Encounter for vaginal delivery SNOMED Code(s): 243109329, 506001144 Code(s): O80 - ENCOUNTER FOR FULL-TERM UNCOMPLICATED DELIVERY Status: Acute Current Visit: Yes - Problem List Review Problem List Initiated/Reviewed/Updated: No - My Orders Last 24 Hours: My Active Orders 06/08/20 16:00 Resuscitation Status Routine 06/08/20 16:42 PIH Panel [OM.PC] Stat 06/08/20 Dinner Regular Diet [DIET] 06/08/20 18:10 Activity as Tolerated [RC] PFP Communication Order [RC] ASDIRECTED Notify Provider [RC] PFP Notify Provider [RC] PRN RAPID PLASMA REAGIN,RPR [CHEM] Routine Nalbuphine [Nubain] 10 mg IVPUSH Q2H PRN Sodium Chloride 0.9% [Saline Flush] 10 ml FLUSH ASDIRECTED PRN Electronic Heart Tones Ext w TOCO [WOMSER] Routine Electronic Heart Tones Internal [WOMSER] Per Unit Routine Peripheral IV Insertion Adult [OM.PC] Routine 06/08/20 18:11 Peripheral IV Care [RC] Q2HR 06/08/20 18:15 Admission Status [Patient Status] [ADT] Routine Patient Status [ADT] Routine Lactated Ringers [Ringers, Lactated] 1,000 ml IV ASDIRECTED miSOPROStoL [Cytotec] 50 mcg VAG ONETIME 06/08/20 19:42 hydrOXYzine HCL [Atarax] 50 mg PO Q6H PRN 06/08/20 23:50 Ondansetron [Zofran] 4 mg IVPUSH Q4H PRN 06/09/20 01:45 Oxytocin/Lactated Ringers [Pitocin in LR 10 Units/1,000 ML] 10 unit in 1,000 ml IV ASDIRECTED 06/09/20 02:00 Labetalol [Normodyne] 100 mg PO Q6H - Plan Plan:: H/H 44.4%/15.7 Patient seen, examined by me and discussed with student HPI Initial Comments: [place] L/D Delivery Note Patient Name: ARSLAN RICK Date of : 89 Patient Status: Inpatient Attending Provider: Josué Parmar Date: 06/09/20 02:06 Initialization Date: 06/09/20 02:06 L & D Note - General Info Date of Service: 06/09/20 Mother's Due Date: 06/18/20 - Delivery Note Labor: Spontaneous Cervical Ripening Method: Misoprostil Delivery Outcome: Livebirth (Born male 0154 hrs. on 06/09/2020 right occiput anterior no nuchal cord epidural anesthesia over no episiotomy no lace ration Apgars 7/9) Delivery Method: Spontaneous Vaginal Delivery-Single Infant Delivery Mode: Spontaneous Presentation: Right Occiput Anterior (WALKER) Nuchal Cord: None Prep: Povidone-Iodine (Betadine Anesthesia Type: Epidural Amniotic Fluid Description: Clear Episiotomy Type: None Laceration: None Placenta: Intact, Spontaneous (0157 hrs. on 06/09/2020) Cord: 3 Vessels Estimated Blood Loss: 250 Resuscitation Needed: No : Suctioned, Bulb Syringe, Stimulated, Warmed, [place] Used, Warmer Used Provider: Josué Parmar Score 1 min: 7 Score 5 min: 9 Induction Criteria - Milan Score Milan Score Dilation: 1-2 cm Milan Score Effacement: 0-30% Milan Score 's Station: -2 Milan Score Consistency: Soft Milan Score Cervix Position: Posterior Milan Score Total: 4 Milan Score Presenting Part: Reports: Cephalic - Induction Gestational Age >/= 39 wks: No Medical Indication: preeclampsia Estimated Pelvis: Reports: Adequate Reassuring Monitoring Strip: Yes Absence of Tachy Systole: Yes - General Info Date of Service: 06/09/20 Functional Status: Reports: Pain Controlled - Review of Systems General: Reports: No Symptoms HEENT: Reports: No Symptoms Pulmonary: Reports: No Symptoms Cardiovascular: Reports: No Symptoms Gastrointestinal: Reports: No Symptoms Genitourinary: Reports: No Symptoms Musculoskeletal: Reports: No Symptoms Skin: Reports: No Symptoms Neurological: Reports: No Symptoms Psychiatric: Reports: No Symptoms - Patient Data Vitals - Most Recent: Last Vital Signs Temp 96.5 F L 06/08/20 16:00 Pulse 94 06/08/20 19:57 Resp 18 06/08/20 16:00 BP 161/103 H 06/08/20 19:57 Pulse Ox 97 06/08/20 16:00 Weight - Most Recent: 251 lb 14.4 oz Lab Results Last 24 Hours: Laboratory Results - last 24 hr 06/08/20 06/08/20 06/08/20 Range/Units 17:20 17:20 17:20 WBC 11.37 H (3.98-10.04) K/mm3 RBC 4.34 (3.98-5.22) M/mm3 Hgb 14.0 (11.2-15.7) gm/dl Hct 40.9 (34.1-44.9) % MCV 94.2 (79.4-94.8) fl MCH 32.3 H (25.6-32.2) pg MCHC 34.2 (32.2-35.5) g/dl RDW Std Deviation 43.5 (36.4-46.3) fL Plt Count 255 (182-369) K/mm3 MPV 12.1 (9.4-12.3) fl Neut % (Auto) 70.6 (34.0-71.1) % Lymph % (Auto) 16.6 L (19.3-51.7) % [place] % (Auto) 9.1 (4.7-12.5) % Eos % (Auto) 1.8 (0.7-5.8) Baso % (Auto) 0.4 (0.1-1.2) % Neut # (Auto) 8.02 H (1.56-6.13) K/mm3 Lymph # (Auto) 1.89 (1.18-3.74) K/mm3 [place] # (Auto) 1.03 H (0.24-0.36) K/mm3 Eos # (Auto) 0.21 (0.04-0.36) K/mm3 Baso # (Auto) 0.05 (0.01-0.08) K/mm3 Manual Slide Review Normal smear BUN 15 (7-18) mg/dL Creatinine 0.8 (0.55-1.02) mg/dL Est Cr Clr Drug Dosing 84.28 mL/min Estimated GFR (MDRD) > 60 (>60) mL/min Uric Acid 6.7 H (2.6-6.0) mg/dL AST 19 (15-37) U/L ALT 18 (14-59) U/L Lactate Dehydrogenase 375 H (81-234) U/L Urine Color Yellow (Yellow) Urine Appearance Clear (Clear) Urine pH 6.0 (5.0-8.0) Ur Specific [place] 1.025 (1.005-1.030) Urine Protein 2+ H (Negative) Urine Glucose (UA) Negative (Negative) Urine Ketones Negative (Negative) Urine Occult Blood Trace-intact H (Negative) Urine Nitrite Negative (Negative) Urine Bilirubin Negative (Negative) Urine Urobilinogen 0.2 (0.2-1.0) Ur Leukocyte Esterase Negative (Negative) Urine RBC 0-5 (0-5) /hpf Urine WBC 0-5 (0-5) /hpf Ur Squamous Epith Cells 5-10 H (0-5) /hpf Amorphous Sediment Moderate H (NOT SEEN) /hpf Urine Bacteria Few (FEW) /hpf Urine Mucus Many H (FEW) /hpf Ur Random Creatinine (30.0-125.0) mg/dL U Random Total Protein (0.0-11.8) mg/dL Protein/Creatinin Ratio (0-149) mg/g SARS-CoV-2 RNA (VAMSHI) (NEGATIVE) Blood Type Gel Antibody Screen 06/08/20 06/08/20 06/08/20 Range/Units 17:20 17:20 17:21 WBC (3.98-10.04) K/mm3 RBC (3.98-5.22) M/mm3 Hgb (11.2-15.7) gm/dl Hct (34.1-44.9) % MCV (79.4-94.8) fl MCH (25.6-32.2) pg MCHC (32.2-35.5) g/dl RDW Std Deviation (36.4-46.3) fL Plt Count (182-369) K/mm3 MPV (9.4-12.3) fl Neut % (Auto) (34.0-71.1) % Lymph % (Auto) (19.3-51.7) % [place] % (Auto) (4.7-12.5) % Eos % (Auto) (0.7-5.8) Baso % (Auto) (0.1-1.2) % Neut # (Auto) (1.56-6.13) K/mm3 Lymph # (Auto) (1.18-3.74) K/mm3 [place] # (Auto) (0.24-0.36) K/mm3 Eos # (Auto) (0.04-0.36) K/mm3 Baso # (Auto) (0.01-0.08) K/mm3 Manual Slide Review BUN (7-18) mg/dL Creatinine (0.55-1.02) mg/dL Est Cr Clr Drug Dosing mL/min Estimated GFR (MDRD) (>60) mL/min Uric Acid (2.6-6.0) mg/dL AST (15-37) U/L ALT (14-59) U/L Lactate Dehydrogenase (81-234) U/L Urine Color (Yellow) Urine Appearance (Clear) Urine pH (5.0-8.0) Ur Specific [place] (1.005-1.030) Urine Protein (Negative) Urine Glucose (UA) (Negative) Urine Ketones (Negative) Urine Occult Blood (Negative) Urine Nitrite (Negative) Urine Bilirubin (Negative) Urine Urobilinogen (0.2-1.0) Ur Leukocyte Esterase (Negative) Urine RBC (0-5) /hpf Urine WBC (0-5) /hpf Ur Squamous Epith Cells (0-5) /hpf Amorphous Sediment (NOT SEEN) /hpf Urine Bacteria (FEW) /hpf Urine Mucus (FEW) /hpf Ur Random Creatinine 178.0 H (30.0-125.0) mg/dL U Random Total Protein 55.6 H (0.0-11.8) mg/dL Protein/Creatinin Ratio 312.4 H (0-149) mg/g SARS-CoV-2 RNA (VAMSHI) Negative (NEGATIVE) Blood Type O POSITIVE Gel Antibody Screen Negative Med Orders - Current: Current Medications Diphenhydramine HCl (Benadryl) 25 mg IVPUSH Q6H PRN PRN Reason: pruritis Ephedrine Sulfate (Ephedrine Sulfate) 5 mg IVPUSH ASDIRECTED PRN PRN Reason: Hypotension Fentanyl (Sublimaze) 100 mcg EPIDUR Q3H PRN PRN Reason: Pain Last Admin: 06/08/20 23:57 Dose: 100 mcg Documented by: Fentanyl/Bupivacaine HCl (Fentanyl/Bupivacaine/Ns 2 Mcg-0.125% 100 Ml) 100 ml EPIDUR ASDIRECTED PRN PRN Reason: Pain Last Admin: 06/08/20 23:57 Dose: 100 ml Documented by: Hydroxyzine HCl (Atarax) 50 mg PO Q6H PRN PRN Reason: Anxiety Last Admin: 06/08/20 19:57 Dose: 50 mg Documented by: Lactated Ringer's (Ringers, Lactated) 1,000 mls @ 100 mls/hr IV ASDIRECTED [facility] Last Admin: 06/09/20 00:39 Dose: 999 mls/hr Documented by: Oxytocin/Lactated Ringer's (Pitocin In Lr 10 Units/1,000 Ml) 10 unit in 1,000 mls @ 500 mls/hr IV ASDIRECTED [facility] Labetalol HCl (Normodyne) 100 mg PO Q6H [facility] Misoprostol (Cytotec) 50 mcg VAG ONETIME [facility] Last Admin: 06/08/20 18:28 Dose: 50 mcg Documented by: Nalbuphine HCl (Nubain) 10 mg IVPUSH Q2H PRN PRN Reason: Pain Ondansetron HCl (Zofran) 4 mg IVPUSH Q4H PRN PRN Reason: Nausea Sodium Chloride (Saline Flush) 10 ml FLUSH ASDIRECTED PRN PRN Reason: Keep Vein Open Discontinued Medications Oxytocin/Lactated Ringer's (Pitocin In Lr 10 Units/1,000 Ml) Confirm Administered Dose 10 unit in 1,000 mls @ as directed IV .STK-MED ONE Stop: 06/09/20 01:35 Labetalol HCl (Normodyne) 200 mg PO ONETIME ONE Stop: 06/08/20 19:43 Last Admin: 06/08/20 19:57 Dose: 200 mg Documented by: Misoprostol (Cytotec) 50 mcg VAG Q4HR [facility] Stop: 06/09/20 01:01 Ondansetron HCl (Zofran) Confirm Administered Dose 4 mg .ROUTE .STK-MED ONE Stop: 06/08/20 23:50 Last Admin: 06/08/20 23:52 Dose: 4 mg Documented by: - Exam General: Alert, Oriented HEENT: Pupils Equal, Mucous Membr. Moist/[place] Neck: Supple Lungs: Clear to Auscultation, Normal Respiratory Effort Cardiovascular: Regular Rate, Regular Rhythm GI/Abdominal Exam: Normal Bowel Sounds, Soft, Non-Tender (Female) Exam: Normal External Exam Extremities: Normal Inspection, Non-Tender, Normal Capillary Refill, Pedal Edema Skin: Warm, Dry, Intact Psy/Mental Status: Alert, Normal Affect, Normal Mood - Problem List & Annotations (1) 38 weeks gestation of SNOMED Code(s): 10609030 Code(s): Z3A.38 - 38 WEEKS GESTATION OF Status: Acute Current Visit: Yes (2) Preeclampsia SNOMED Code(s): 137046469 Code(s): O14.90 - UNSPECIFIED PRE-ECLAMPSIA, UNSPECIFIED TRIMESTER Status: Acute Current Visit: Yes Qualifiers: Trimester: third trimester Qualified Code(s): O14.93 - Unspecified pre- eclampsia, third trimester (3) Obesity affecting in third trimester, antepartum SNOMED Code(s): 387033255277, 523196286002 Code(s): O99.213 - OBESITY COMPLICATING , THIRD TRIMESTER Status: Acute Current Visit: Yes (4) Encounter for vaginal delivery SNOMED Code(s): 360231110, 873990183 Code(s): O80 - ENCOUNTER FOR FULL-TERM UNCOMPLICATED DELIVERY Status: Acute Current Visit: Yes - Problem List Review Problem List Initiated/Reviewed/Updated: No - My Orders Last 24 Hours: My Active Orders 06/08/20 16:00 Resuscitation Status Routine 06/08/20 16:42 PIH Panel [OM.PC] Stat 06/08/20 Dinner Regular Diet [DIET] 06/08/20 18:10 Activity as Tolerated [RC] PFP Communication Order [RC] ASDIRECTED Notify Provider [RC] PFP Notify Provider [RC] PRN RAPID PLASMA REAGIN,RPR [CHEM] Routine Nalbuphine [Nubain] 10 mg IVPUSH Q2H PRN Sodium Chloride 0.9% [Saline Flush] 10 ml FLUSH ASDIRECTED PRN Electronic Heart Tones Ext w TOCO [WOMSER] Routine Electronic Heart Tones Internal [WOMSER] Per Unit Routine Peripheral IV Insertion Adult [OM.PC] Routine 06/08/20 18:11 Peripheral IV Care [RC] Q2HR 06/08/20 18:15 Admission Status [Patient Status] [ADT] Routine Patient Status [ADT] Routine Lactated Ringers [Ringers, Lactated] 1,000 ml IV ASDIRECTED miSOPROStoL [Cytotec] 50 mcg VAG ONETIME 06/08/20 19:42 hydrOXYzine HCL [Atarax] 50 mg PO Q6H PRN 06/08/20 23:50 Ondansetron [Zofran] 4 mg IVPUSH Q4H PRN 06/09/20 01:45 Oxytocin/Lactated Ringers [Pitocin in LR 10 Units/1,000 ML] 10 unit in 1,000 ml IV ASDIRECTED 06/09/20 02:00 Labetalol [Normodyne] 100 mg PO Q6H - Plan Plan:: H/H 44.4%/15.7 Patient seen, examined by me and discussed with student Brief History: [facility] LIVE . L/D Delivery Note. Patient Name: ARSLAN RICKMedical Record Number: [id number]. Date of : [birth year]Patient Status: Inpatient. Attending Provider: Josué Parmarount Number: [id number]. Date: 06/09/20 02:06Initialization Date: 06/09/20 02:06. L & D Note. - General Info. Date of Service: 06/09/20. Mother's Due Date: 06/18/20. - Delivery Note. Labor: Spontaneous. Cervical Ripening Method: Misoprostil. Delivery Outcome: Livebirth (Born male 0154 hrs. on 06/09/2020 right occiput anterior no nuchal cord epidural anesthesia over no episiotomy no laceration Apgars 7/9). Delivery Method: Spontaneous Vaginal Delivery-Single. Delivery Mode: Spontaneous. Presentation: Right Occiput Anterior (WALKER). Nuchal Cord: None. Prep: Povidone- Iodine (Betadine. Anesthesia Type: Epidural. Amniotic Fluid Description: Clear. Episiotomy Type: None. Laceration: None. Placenta: Intact, Spontaneous (0157 hrs. on 06/09/2020). Cord: 3 Vessels. Estimated Blood Loss: 250. Resuscitation Needed: No. : Suctioned, Bulb Syringe, Stimulated, Warmed, [place] Used, Warmer Used. Provider: Josué Parmar. Score 1 min: 7. Score 5 min: 9. Induction Criteria. - Milan Score. Milan Score Dilation: 1-2 cm. Milan Score Effacement: 0-30%. Milan Score 's Station: -2. Milan Score Consistency: Soft. Milan Score Cervix Position: Posterior. Milan Score Total: 4. Milan Score Presenting Part: Reports: Cephalic. - Induction. Gestational Age >/= 39 wks: No. Medical Indication: preeclampsia. Estimated Pelvis: Reports: Adequate. Reassuring Monitoring Strip: Yes. Absence of Tachy Systole: Yes. - General Info. Date of Service: 06/09/20. Functional Status: Reports: Pain Controlled. - Review of Systems. General: Reports: No Symptoms. HEENT: Reports: No Symptoms. Pulmonary: Reports: No Symptoms. Cardiovascular: Reports: No Symptoms. Gastrointestinal: Reports: No Symptoms. Genitourinary: Reports: No Symptoms. Musculoskeletal: Reports: No Symptoms. Skin: Reports: No Symptoms. Neurological: Reports: No Symptoms. Psychiatric: Reports: No Symptoms. - Patient Data. Vitals - Most Recent: Last Vital Signs. Temp 96.5 F L 06/08/20 16:00. Pulse 94 06/08/20 19:57. Resp 18 06/08/20 16:00. BP 161/103 H 06/08/20 19:57. Pulse Ox 97 06/08/20 16:00. Weight - Most Recent: 251 lb 14.4 oz. Lab Results Last 24 Hours: Laboratory Results - last 24 hr. 06/08/2012/12/2011Range/Units. 17:2017:2017:20. WBC 11.37 H (3.98-10.04) K/mm3. RBC 4.34 (3.98-5.22) M/mm3. Hgb 14.0 (11.2-15.7) gm/dl. Hct 40.9 (34.1-44.9) %. MCV 94.2 (79.4-94.8) fl. MCH 32.3 H (25.6-32.2) pg. MCHC 34.2 (32.2-35.5) g/dl. RDW Std Deviation 43.5 (36.4-46.3) fL. Plt Count 255 (182-369) K/mm3. MPV 12.1 (9.4-12.3) fl. Neut % (Auto) 70.6 (34.0-71.1) %. Lymph % (Auto) 16.6 L (19.3-51.7) %. [place] % (Auto) 9.1 (4.7-12.5) %. Eos % (Auto) 1.8 (0.7-5.8). Baso % (Auto) 0.4 (0.1-1.2) %. Neut # (Auto) 8.02 H (1.56-6.13) K/mm3. Lymph # (Auto) 1.89 (1.18-3.74) K/mm3. [place] # (Auto) 1.03 H (0.24-0.36) K/mm3. Eos # (Auto) 0.21 (0.04-0.36) K/mm3. Baso # (Auto) 0.05 (0.01-0.08) K/mm3. Manual Slide Review Normal smear. BUN 15 (7-18) mg/dL. Creatinine 0.8 (0.55-1.02) mg/dL. Est Cr Clr Drug Dosing 84.28 mL/min. Estimated GFR (MDRD) > 60 (>60) mL/min. Uric Acid 6.7 H (2.6-6.0) mg/dL. AST 19 (15-37) U/L. ALT 18 (14-59) U/L. Lactate Dehydrogenase 375 H (81-234) U/L. Urine Color Yellow (Yellow). Urine Appearance Clear (Clear). Urine pH 6.0 (5.0-8.0). Ur Specific [place] 1.025 (1.005-1.030). Urine Protein 2+ H (Negative). Urine Glucose (UA) Negative (Negative). Urine Ketones Negative (Negative). Urine Occult Blood Trace-intact H (Negative). Urine Nitrite Negative (Negative). Urine Bilirubin Negative (Negative). Urine Urobilinogen 0.2 (0.2-1.0). Ur Leukocyte Esterase Negative (Negative). Urine RBC 0-5 (0-5) /hpf. Urine WBC 0-5 (0-5) /hpf. Ur Squamous Epith Cells 5-10 H (0-5) /hpf. Amorphous Sediment Moderate H (NOT SEEN) /hpf. Urine Bacteria Few (FEW) /hpf. Urine Mucus Many H (FEW) /hpf. Ur Random Creatinine (30.0-125.0) mg/dL. U Random Total Protein (0.0-11.8) mg/dL. Protein/Creatinin Ratio (0- 149) mg/g. SARS-CoV-2 RNA (VAMSHI) (NEGATIVE). Blood Type. Gel Antibody Screen. 06/08/2012/12/2011/12/21Range/Units. 17:2017:2017:21. WBC (3.98-10.04) K/mm3. RBC (3.98-5.22) M/mm3. Hgb (11.2-15.7) gm/dl. Hct (34.1-44.9) %. MCV (79.4-94.8) fl. MCH (25.6-32.2) pg. MCHC (32.2-35.5) g/dl. RDW Std Deviation (36.4-46.3) fL. Plt Count (182-369) K/mm3. MPV (9.4-12.3) fl. Neut % (Auto) (34.0-71.1) %. Lymph % (Auto) (19.3-51.7) %. [place] % (Auto) (4.7-12.5) %. Eos % (Auto) (0.7-5.8). Baso % (Auto) (0.1-1.2) %. Neut # (Auto) (1.56-6.13) K/mm3. Lymph # (Auto) (1.18-3.74) K/mm3. [place] # (Auto) (0.24-0.36) K/mm3. Eos # (Auto) (0.04-0.36) K/mm3. Baso # (Auto) (0.01-0.08) K/mm3. Manual Slide Review. BUN (7-18) mg/dL. Creatinine (0.55-1.02) mg/dL. Est Cr Clr Drug Dosing mL/min. Estimated GFR (MDRD) (>60) mL/min. Uric Acid (2.6-6.0) mg/dL. AST (15-37) U/L. ALT (14-59) U/L. Lactate Dehydrogenase (81-234) U/L. Urine Color (Yellow). Urine Appearance (Clear). Urine pH (5.0-8.0). Ur Specific [place] (1.005-1.030). Urine Protein (Negative). Urine Glucose (UA) (Negative). Urine Ketones (Negative). Urine Occult Blood (Negative). Urine Nitrite (Negative). Urine Bilirubin (Negative). Urine Urobilinogen (0.2-1.0). Ur Leukocyte Esterase (Negative). Urine RBC (0-5) /hpf. Urine WBC (0-5) /hpf. Ur Squamous Epith Cells (0-5) /hpf. Amorphous Sediment (NOT SEEN) /hpf. Urine Bacteria (FEW) /hpf. Urine Mucus (FEW) /hpf. Ur Random Creatinine 178.0 H (30.0-125.0) mg/dL. U Random Total Protein 55.6 H (0.0-11.8) mg/dL. Protein/Creatinin Ratio 312.4 H (0-149) mg/g. SARS-CoV-2 RNA (VAMSHI) Negative (NEGATIVE). Blood Type O POSITIVE. Gel Antibody Screen Negative. Med Orders - Current: Current Medications. Diphenhydramine HCl (Benadryl) 25 mg IVPUSH Q6H PRN. PRN Reason: pruritis. Ephedrine Sulfate (Ephedrine Sulfate) 5 mg IVPUSH ASDIRECTED PRN. PRN Reason: Hypotension. Fentanyl (Sublimaze) 100 mcg EPIDUR Q3H PRN. PRN Reason: Pain. Last Admin: 06/08/20 23:57 Dose: 100 mcg. Documented by: Fentanyl/Bupivacaine HCl (Fentanyl/Bupivacaine/Ns 2 Mcg-0.125% 100 Ml) 100 ml EPIDUR ASDIRECTED PRN. PRN Reason: Pain. Last Admin: 06/08/20 23:57 Dose: 100 ml. Documented by: Hydroxyzine HCl (Atarax) 50 mg PO Q6H PRN. PRN Reason: Anxiety. Last Admin: 06/08/20 19:57 Dose: 50 mg. Documented by: Lactated Ringer's (Ringers, Lactated) 1,000 mls @ 100 mls/hr IV ASDIRECTED [facility]. Last Admin: 06/09/20 00:39 Dose: 999 mls/hr. Documented by: Oxytocin/Lactated Ringer's (Pitocin In Lr 10 Units/1,000 Ml) 10 unit in 1,000 mls @ 500 mls/hr IV ASDIRECTED [facility]. Labetalol HCl (Normodyne) 100 mg PO Q6H [facility]. Misoprostol (Cytotec) 50 mcg VAG ONETIME [facility]. Last Admin: 06/08/20 18:28 Dose: 50 mcg. Documented by: Nalbuphine HCl (Nubain) 10 mg IVPUSH Q2H PRN. PRN Reason: Pain. Ondansetron HCl (Zofran) 4 mg IVPUSH Q4H PRN. PRN Reason: Nausea. Sodium Chloride (Saline Flush) 10 ml FLUSH ASDIRECTED PRN. PRN Reason: Keep Vein Open. Discontinued Medications. Oxytocin/Lactated Ringer's (Pitocin In Lr 10 Units/1,000 Ml) Confirm Administered Dose 10 unit in 1,000 mls @ as directed IV .STK-MED ONE. Stop: 06/09/20 01:35. Labetalol HCl (Normodyne) 200 mg PO ONETIME ONE. Stop: 06/08/20 19:43. Last Admin: 06/08/20 19:57 Dose: 200 mg. Documented by: Misoprostol (Cytotec) 50 mcg VAG Q4HR [facility]. Stop: 06/09/20 01:01. Ondansetron HCl (Zofran) Confirm Administered Dose 4 mg .ROUTE .STK-MED ONE. Stop: 06/08/20 23:50. Last Admin: 06/08/20 23:52 Dose: 4 mg. Documented by: - Exam. General: Alert, Oriented. HEENT: Pupils Equal, Mucous Membr. Moist/[place]. Neck: Supple. Lungs: Clear to Auscultation, Normal Respiratory Effort. Cardiovascular: Regular Rate, Regular Rhythm. GI/Abdominal Exam: Normal Bowel Sounds, Soft, Non-Tender. (Female) Exam: Normal External Exam. Extremities: Normal Inspection, Non-Tender, Normal Capillary Refill, Pedal Edema. Skin: Warm, Dry, Intact. Psy/Mental Status: Alert, Normal Affect, Normal Mood. - Problem List & Annotations. (1) 38 weeks gestation of . SNOMED Code(s): 08540881. Code(s): Z3A.38 - 38 WEEKS GESTATION OF Status: Acute Current Visit: Yes. (2) Preeclampsia. SNOMED Code(s): 277801574. Code(s): O14.90 - UNSPECIFIED PRE-ECLAMPSIA, UNSPECIFIED TRIMESTER Status: Acute Current Visit: Yes. Qualifiers: Trimester: third trimester Qualified Code(s): O14.93 - Unspecified pre-eclampsia, third trimester. (3) Obesity affecting in third trimester, antepartum. SNOMED Code(s): 344029850091, 143556558815. Code(s): O99.213 - OBESITY COMPLICATING , THIRD TRIMESTER Status: Acute Current Visit: Yes. (4) Encounter for vaginal delivery. SNOMED Code(s): 368489090, 446785009. Code(s): O80 - ENCOUNTER FOR FULL-TERM UNCOMPLICATED DELIVERY Status: Acute Current Visit: Yes. - Problem List Review. Problem List Initiated/Reviewed/Updated: No. - My Orders. Last 24 Hours: My Active Orders. 06/08/20 16:00. Resuscitation Status Routine. 06/08/20 16:42. PIH Panel [OM.PC] Stat. 06/08/20 Dinner. Regular Diet [DIET]. 06/08/20 18:10. Activity as Tolerated [RC] PFP. Communication Order [RC] ASDIRECTED. Notify Provider [RC] PFP. Notify Provider [RC] PRN. RAPID PLASMA REAGIN,RPR [CHEM] Routine. Nalbuphine [Nubain] 10 mg IVPUSH Q2H PRN. Sodium Chloride 0.9% [Saline Flush] 10 ml FLUSH ASDIRECTED PRN. Electronic Heart Tones Ext w TOCO [WOMSER] Routine. Electronic Heart Tones Internal [WOMSER] Per Unit Routine. Peripheral IV Insertion Adult [OM.PC] Routine. 06/08/20 18:11. Peripheral IV Care [RC] Q2HR. 06/08/20 18:15 . Admission Status [Patient Status] [ADT] Routine. Patient Status [ADT] Routine. Lactated Ringers [Ringers, Lactated] 1,000 ml IV ASDIRECTED. miSOPROStoL [Cytotec] 50 mcg VAG ONETIME. 06/08/20 19:42. hydrOXYzine HCL [Atarax] 50 mg PO Q6H PRN. 06/08/20 23:50. Ondansetron [Zofran] 4 mg IVPUSH Q4H PRN. 06/09/20 01:45. Oxytocin/Lactated Ringers [Pitocin in LR 10 Units/1,000 ML] 10 unit in 1,000 ml IV ASDIRECTED. 06/09/20 02:00. Labetalol [Normodyne] 100 mg PO Q6H. - Plan. Plan:: H/H 44.4%/15.7. Patient seen, examined by me and discussed with student Diagnosis: Stroke: No - Discharge Data Discharge Date: 06/11/20 Discharge Disposition: Home, Self-Care 01 Condition: Good - Referral to Home Health Primary Care Physician: Blake Chatman MD - Discharge Diagnosis/Problem(s) (1) 38 weeks gestation of SNOMED Code(s): 74220274 ICD Code: Z3A.38 - 38 WEEKS GESTATION OF Status: Acute Current Visit: Yes (2) Preeclampsia SNOMED Code(s): 314191179 ICD Code: O14.90 - UNSPECIFIED PRE-ECLAMPSIA, UNSPECIFIED TRIMESTER Status: Acute Current Visit: Yes Qualifiers: Trimester: third trimester Qualified Code(s): O14.93 - Unspecified pre- eclampsia, third trimester (3) Obesity affecting in third trimester, antepartum SNOMED Code(s): 180773944617, 504150346129 ICD Code: O99.213 - OBESITY COMPLICATING , THIRD TRIMESTER Status: Acute Current Visit: Yes (4) Encounter for vaginal delivery SNOMED Code(s): 606255383, 040579652 ICD Code: O80 - ENCOUNTER FOR FULL-TERM UNCOMPLICATED DELIVERY Status: Acute Current Visit: Yes - Patient Summary/Data Complications: none Consults: none Hospital Course: uneventful - Patient Instructions Diet: Usual Diet as Tolerated Driving: Do Not Drive (x48 hours) Showering/Bathing: May Shower Notify Provider of: Fever, Increased Pain, Swelling and Redness, Drainage, Nausea and/or Vomiting - Discharge Plan *PRESCRIPTION DRUG MONITORING PROGRAM REVIEWED*: Not Applicable *COPY OF PRESCRIPTION DRUG MONITORING REPORT IN PATIENT HIPOLITO: Not Applicable Prescriptions/Med Rec: Labetalol [Normodyne] 100 mg PO Q6H #120 tablet Home Medications: Home Meds Vits #93/Iron Fum/FA [ Formula Tablet] 1 each PO DAILY 06/08/20 [History] Acetaminophen [Tylenol] 650 mg PO Q6H PRN tablet 06/11/20 [Rx] Docusate Sodium [Colace] 100 mg PO BID PRN cap 06/11/20 [Rx] Ibuprofen [Motrin] 600 mg PO Q6H PRN tablet 06/11/20 [Rx] Labetalol [Normodyne] 100 mg PO Q6H #120 tablet 06/11/20 [Rx] witch [place]ama [Tucks] 1 pad TOP ASDIRECTED PRN pad 06/11/20 [Rx] Referrals: Blake Chatman MD [Primary Care Provider] - (see Dr Chatman next week re BP) - Discharge Summary/Plan Comment DC Time >30 min.: No - General Info Date of Service: 06/11/20 Functional Status: Reports: Pain Controlled - Review of Systems General: Reports: No Symptoms HEENT: Reports: No Symptoms Pulmonary: Reports: No Symptoms Cardiovascular: Reports: No Symptoms Gastrointestinal: Reports: No Symptoms Genitourinary: Reports: No Symptoms Musculoskeletal: Reports: No Symptoms Skin: Reports: No Symptoms Neurological: Reports: No Symptoms Psychiatric: Reports: No Symptoms - Patient Data Vitals - Most Recent: Last Vital Signs Temp 98.1 F 06/11/20 03:33 Pulse 96 06/11/20 03:33 Resp 16 06/11/20 03:33 BP 136/84 06/11/20 03:33 Pulse Ox 98 06/11/20 03:33 Weight - Most Recent: 251 lb 14.4 oz I&O - Last 24 hours: Intake & Output 06/10/20 06/11/20 06/11/20 22:59 06:59 14:59 Intake Total 320 Balance 320 Med Orders - Current: Current Medications Acetaminophen (Tylenol) 650 mg PO Q4H PRN PRN Reason: mild pain or fever Last Admin: 06/09/20 17:53 Dose: 650 mg Documented by: Benzocaine/Menthol (Dermoplast Pain Relief [place]) 0 gm TOP ASDIRECTED PRN PRN Reason: Perineal Comfort Measure Last Admin: 06/09/20 04:09 Dose: 1 can Documented by: Docusate Sodium (Colace) 100 mg PO BID PRN PRN Reason: Constipation Last Admin: 06/10/20 15:37 Dose: 100 mg Documented by: Ibuprofen (Motrin) 600 mg PO Q4H PRN PRN Reason: Mild pain or fever Last Admin: 06/10/20 21:38 Dose: 600 mg Documented by: Labetalol HCl (Normodyne) 100 mg PO Q6H [facility] Last Admin: 06/11/20 03:30 Dose: 100 mg Documented by: Deborah Gonzalez ([facility]) 1 pad TOP ASDIRECTED PRN PRN Reason: Perineal Comfort Measure Last Admin: 06/09/20 04:09 Dose: 1 container Documented by: Discontinued Medications Bupivacaine HCl (Sensorcaine-Mpf 0.25%) 10 ml .ROUTE .STK-MED ONE Stop: 06/09/20 00:01 Diphenhydramine HCl (Benadryl) 25 mg IVPUSH Q6H PRN PRN Reason: pruritis Ephedrine Sulfate (Ephedrine Sulfate) 5 mg IVPUSH ASDIRECTED PRN PRN Reason: Hypotension Ephedrine Sulfate (Ephedrine 25 Mg/5 Ml Syringe) 25 mg IV .STK-MED ONE Stop: 06/09/20 00:01 Fentanyl (Sublimaze) 100 mcg EPIDUR Q3H PRN PRN Reason: Pain Last Admin: 06/08/20 23:57 Dose: 100 mcg Documented by: Fentanyl/Bupivacaine HCl (Fentanyl/Bupivacaine/Ns 2 Mcg-0.125% 100 Ml) 100 ml EPIDUR ASDIRECTED PRN PRN Reason: Pain Last Admin: 06/08/20 23:57 Dose: 100 ml Documented by: Hydroxyzine HCl (Atarax) 50 mg PO Q6H PRN PRN Reason: Anxiety Last Admin: 06/08/20 19:57 Dose: 50 mg Documented by: Lactated Ringer's (Ringers, Lactated) 1,000 mls @ 100 mls/hr IV ASDIRECTED [facility] Last Admin: 06/09/20 00:39 Dose: 999 mls/hr Documented by: Oxytocin/Lactated Ringer's (Pitocin In Lr 10 Units/1,000 Ml) 10 unit in 1,000 mls @ 500 mls/hr IV ASDIRECTED [facility] Last Admin: 06/09/20 01:55 Dose: 500 mls/hr Documented by: Oxytocin/Lactated Ringer's (Pitocin In Lr 10 Units/1,000 Ml) Confirm Administered Dose 10 unit in 1,000 mls @ as directed IV .STK-MED ONE Stop: 06/09/20 01:35 Last Admin: 06/09/20 02:48 Dose: Not Given Documented by: Labetalol HCl (Normodyne) 200 mg PO ONETIME ONE Stop: 06/08/20 19:43 Last Admin: 06/08/20 19:57 Dose: 200 mg Documented by: Labetalol HCl (Normodyne) 100 mg PO Q6H [facility] Last Admin: 06/09/20 03:02 Dose: 100 mg Documented by: Labetalol HCl (Normodyne) 100 mg PO TID [facility] Last Admin: 06/09/20 08:45 Dose: 100 mg Documented by: Labetalol HCl (Normodyne) 100 mg PO QID [facility] Labetalol HCl (Normodyne) 100 mg PO Q6H [facility] Last Admin: 06/09/20 15:05 Dose: 100 mg Documented by: Labetalol HCl (Normodyne) 100 mg PO Q6H [facility] Last Admin: 06/09/20 19:38 Dose: Not Given Documented by: Labetalol HCl (Normodyne) 100 mg PO ONETIME ONE Stop: 06/09/20 17:50 Last Admin: 06/09/20 17:54 Dose: 100 mg Documented by: Labetalol HCl (Normodyne) 200 mg PO 0300,0900,1500,2100 [facility] Last Admin: 06/10/20 15:35 Dose: 100 mg Documented by: Misoprostol (Cytotec) 50 mcg VAG ONETIME [facility] Last Admin: 06/08/20 18:28 Dose: 50 mcg Documented by: Misoprostol (Cytotec) 50 mcg VAG Q4HR [facility] Stop: 06/09/20 01:01 Last Admin: 06/09/20 02:48 Dose: Not Given Documented by: Nalbuphine HCl (Nubain) 10 mg IVPUSH Q2H PRN PRN Reason: Pain Ondansetron HCl (Zofran) 4 mg IVPUSH Q4H PRN PRN Reason: Nausea Ondansetron HCl (Zofran) Confirm Administered Dose 4 mg .ROUTE .STK-MED ONE Stop: 06/08/20 23:50 Last Admin: 06/08/20 23:52 Dose: 4 mg Documented by: Sodium Chloride (Saline Flush) 10 ml FLUSH ASDIRECTED PRN PRN Reason: Keep Vein Open - Exam General: Reports: Alert, Oriented HEENT: Reports: Pupils Equal, Mucous Membr. Moist/[place] Neck: Reports: Supple Lungs: Reports: Clear to Auscultation, Normal Respiratory Effort Cardiovascular: Reports: Regular Rate, Regular Rhythm GI/Abdominal Exam: Normal Bowel Sounds (Female) Exam: Normal External Exam Extremities: Normal Inspection, Non-Tender, No Pedal Edema, Normal Capillary Refill Skin: Reports: Warm, Dry, Intact Psy/Mental Status: Reports: Alert, Normal Affect, Normal Mood
== END 2020-06-11 10:42 | disposition home or self-care (01) | DRG 560 ==
LOC: JD.OBCHECK 15:51 → JD.OB 15:53 → JD.OBCHECK 18:40 → OBSVTOIN 06-09 01:54 → JD.OB 06-09 01:55
PROVIDERS: ADMIT Obstetrics & Gynecology; ATTEND Obstetrics & Gynecology
PROC: 10E0XZZ Delivery of Products of Conception, External Approach (ICD-10-PCS; principal; 2020-06-09)
PROC: 3E0R3BZ Introduction of Anesthetic Agent into Spinal Canal, Percutaneous Approach (ICD-10-PCS; 2020-06-09)
PROC: 00HU33Z Insertion of Infusion Device into Spinal Canal, Percutaneous Approach (ICD-10-PCS; 2020-06-09)
DX: O14.94 Unspecified pre-eclampsia, complicating childbirth (principal); O99.214 Obesity complicating childbirth; E66.9 Obesity, unspecified; Z3A.38 38 weeks gestation of pregnancy; Z37.0 Single live birth; Z20.828 Contact with and (suspected) exposure to other viral communicable diseases
CPT/HCPCS: 01967; 36415; 51701; 51702; 59025; 59409; 81001; 82565; 82570; 83615; 84156; 84450; 84460; 84520; 84550; 85025; 86850; 86900; 86901; A9270-GY; J0171; J2405; J2590; J3010; J3490; J7120; U0002